=== PATIENT | male | born 1960 | race African-American/Black ===

== ENCOUNTER 2022-12-22 16:12 | Inpatient (IN) | payer OTHER ==
[2022-12-22 17:52] VITALS: BMI 33.8
[2022-12-22] MEDS ORDERED: LOPERAMIDE HCL 2 MG CAPSULE PO PRN (19:31)
[2022-12-22] MEDS ORDERED: BISMUTH SUBSALICYLATE 524 MG/30 ML PO PRN (19:31)
[2022-12-22] MEDS ORDERED: MAG HYDROX/AL HYDROX/SIMETH 30 ML UNIT-DOSE CUP PO PRN (19:31)
[2022-12-22] MEDS ORDERED: P-EPHED 60MG/TRIPROLIDI 2.5MG TABLET PO PRN (19:31)
[2022-12-22] MEDS ORDERED: IBUPROFEN 400 MG TABLET (FP) PO PRN (19:31)
[2022-12-22] MEDS ORDERED: BENZOCAINE/MENTHOL (CHLORASEPTIC ) LOZENGE MM PRN (19:31)
[2022-12-22] MEDS ORDERED: ACETAMINOPHEN 325 MG TABLET (FP) PO PRN (19:31)
[2022-12-22] MEDS ORDERED: ONDANSETRON *ODT* 4 MG TABLET SL PRN (19:31)
[2022-12-22] MEDS ORDERED: POLYETHYLENE GLYCOL (HEALTHYLAX) 3350 17 GM PACKET PO PRN (19:31)
[2022-12-22] MEDS ORDERED: IBUPROFEN 600 MG TABLET (FP) PO PRN (19:31)
[2022-12-22] MEDS ORDERED: MAGNESIUM HYDROX 2400MG/30ML ORAL SUSPENSION 30 ML CUP PO PRN (19:31)
[2022-12-22] MEDS ORDERED: BENZONATATE 200 MG CAPSULE PO PRN (19:31)
[2022-12-22] MEDS ORDERED: guaiFENesin 600 MG TABLET.ER (FP) PO PRN (19:31)
[2022-12-22] MEDS ORDERED: DICYCLOMINE HCL 10 MG CAPSULE PO PRN (19:31)
[2022-12-22] MEDS: METHOCARBAMOL 500 MG TABLET PO PRN (20:32)
[2022-12-22] MEDS ORDERED: MELATONIN 5 MG TABLETS PO SCH (22:00)
[2022-12-22] MEDS: THIAMINE HCL 100 MG TABLET (FP) PO SCH (22:29)
[2022-12-22] MEDS: hydrOXYzine PAMOATE 25 MG CAPSULE (FP) PO PRN (22:30)
[2022-12-23] MEDS ORDERED: chlordiazePOXIDE HCL 25 MG CAPSULE PO PRN (09:51)
[2022-12-23 10:08] LABS: HEMATOCRIT 41.4 % (35.4-49); HEMOGLOBIN 13.6 GM/dL (11.7-16.9); MCH 29.3 pg (25.7-33.7); MCHC 32.9 g/dl (32.0-35.9); MEAN CELL VOLUME 89.1 fl (80-96); MEAN PLT VOLUME 8.8 fl (7.5-11.1); PLATELET COUNT 285 10^3/uL (134-434); RBC 4.64 M/mm3 (4.00-5.60); RDW 14.4 % (11.9-15.9); WHITE BLOOD COUNT 9.2 K/mm3 (4.0-10.0)
[2022-12-23] MEDS: PRENATAL VITAMINS W/ FOLIC ACID TABLET (FP) PO SCH (10:15)
[2022-12-23] MEDS: chlordiazePOXIDE HCL 25 MG CAPSULE PO SCH ×3 (10:15→22:32)
[2022-12-23 10:22] LABS: ALBUMIN 3.1 g/dl (3.4-5.0)
[2022-12-23 10:25] LABS: BLOOD UREA NITROGEN 14.1 mg/dL (7-18); CALCIUM 8.4 mg/dL (8.5-10.1); TOT PROT 7.1 g/dl (6.4-8.2)
[2022-12-23 10:26] LABS: BILIRUBIN,TOTAL 0.6 mg/dL (0.2-1)
[2022-12-23 10:30] LABS: CREATININE 0.9 mg/dL (0.55-1.3)
[2022-12-23] MEDS: THIAMINE HCL 100 MG TABLET (FP) PO SCH (22:32)
[2022-12-23] MEDS: SUVOREXANT 10 MG TABLET PO PRN (22:33)
[2022-12-24] MEDS: chlordiazePOXIDE HCL 25 MG CAPSULE PO SCH ×4 (05:40→22:15)
[2022-12-24] MEDS: PRENATAL VITAMINS W/ FOLIC ACID TABLET (FP) PO SCH (10:13)
[2022-12-24] MEDS ORDERED: PENICILLIN G BENZATHINE 2,400,000 UNIT/4 ML PFS IM ONE (13:15)
[2022-12-24] MEDS: THIAMINE HCL 100 MG TABLET (FP) PO SCH (22:15)
[2022-12-24] MEDS: SUVOREXANT 10 MG TABLET PO PRN (22:16)
[2022-12-24] MEDS ORDERED: ALBUTEROL SO4 HFA INHALER IH PRN (23:05)
[2022-12-25] MEDS: chlordiazePOXIDE HCL 25 MG CAPSULE PO SCH ×4 (05:27→22:24)
[2022-12-25] MEDS: PRENATAL VITAMINS W/ FOLIC ACID TABLET (FP) PO SCH (10:18)
[2022-12-25] MEDS ORDERED: PNEUMOC 20-VAL CONJ-DIP CRM/PF 0.5 ML SYRINGE IM ONE (12:00)
[2022-12-25] MEDS: MOMETASONE FUROATE 220 MCG/IH INHALER IH SCH (14:48)
[2022-12-25] MEDS: THIAMINE HCL 100 MG TABLET (FP) PO SCH (22:23)
[2022-12-25] MEDS: TERAZOSIN HCL 1 MG CAPSULE PO SCH (22:23)
[2022-12-25] MEDS: SUVOREXANT 10 MG TABLET PO PRN (22:24)
[2022-12-26] MEDS ORDERED: chlordiazePOXIDE HCL 10 MG CAPSULE PO PRN
[2022-12-26] MEDS: chlordiazePOXIDE HCL 10 MG CAPSULE PO SCH ×4 (05:45→22:20)
[2022-12-26] MEDS: MOMETASONE FUROATE 220 MCG/IH INHALER IH SCH (10:27)
[2022-12-26] MEDS: PRENATAL VITAMINS W/ FOLIC ACID TABLET (FP) PO SCH (10:28)
[2022-12-26] MEDS: hydrOXYzine PAMOATE 25 MG CAPSULE (FP) PO PRN (22:19)
[2022-12-26] MEDS: METHOCARBAMOL 500 MG TABLET PO PRN (22:19)
[2022-12-26] MEDS: THIAMINE HCL 100 MG TABLET (FP) PO SCH (22:19)
[2022-12-26] MEDS: SUVOREXANT 10 MG TABLET PO PRN (22:19)
[2022-12-26] MEDS: TERAZOSIN HCL 1 MG CAPSULE PO SCH (22:23)
[2022-12-27] MEDS ORDERED: chlordiazePOXIDE HCL 10 MG CAPSULE PO SCH (05:00)
[2022-12-27 06:37] VITALS: BP 126/60; PULSE 68; RESP 17; TEMP 98.4
[2022-12-27] MEDS: MOMETASONE FUROATE 220 MCG/IH INHALER IH SCH (09:13)
[2022-12-27] MEDS: PRENATAL VITAMINS W/ FOLIC ACID TABLET (FP) PO SCH (09:14)
[2022-12-28] MEDS ORDERED: chlordiazePOXIDE HCL 10 MG CAPSULE PO ONE (05:00)
== END 2022-12-27 08:57 | disposition home or self-care (01) | DRG 774 ==
LOC: YASAS 16:12 → Y3N 19:48
PROVIDERS: ADMIT Allergy & Immunology; ATTEND Surgery
PROC: HZ2ZZZZ Detoxification Services for Substance Abuse Treatment (ICD-10-PCS; principal; 2022-12-22)
DX: F10.230 Alcohol dependence with withdrawal, uncomplicated (principal); F14.20 Cocaine dependence, uncomplicated; F19.282 Other psychoactive substance dependence with psychoactive substance-induced sleep disorder; I10 Essential (primary) hypertension
CPT/HCPCS: 36415; 80053; 83036; 85027; 86593; 86780; 87635; 87811; 90677

== ENCOUNTER 2024-03-06 09:12 | Inpatient (IN) | payer OTHER ==
[2024-03-06 10:15] VITALS: BMI 27.3
[2024-03-06] MEDS ORDERED: guaiFENesin 600 MG TABLET.ER (FP) PO PRN (10:55)
[2024-03-06] MEDS ORDERED: IBUPROFEN 600 MG TABLET (FP) PO PRN (10:55)
[2024-03-06] MEDS ORDERED: NALOXONE (NARCAN) HCL 4 MG/0.1 ML SPRAY NS PRN (10:55)
[2024-03-06] MEDS ORDERED: IBUPROFEN 400 MG TABLET (FP) PO PRN (10:55)
[2024-03-06] MEDS ORDERED: MAGNESIUM HYDROX 2400MG/30ML ORAL SUSPENSION 30 ML CUP PO PRN (10:55)
[2024-03-06] MEDS ORDERED: BENZONATATE 200 MG CAPSULE PO PRN (10:55)
[2024-03-06] MEDS ORDERED: LOPERAMIDE HCL 2 MG CAPSULE PO PRN (10:55)
[2024-03-06] MEDS ORDERED: MAG HYDROX/AL HYDROX/SIMETH 30 ML UNIT-DOSE CUP PO PRN (10:55)
[2024-03-06] MEDS ORDERED: ONDANSETRON *ODT* 4 MG TABLET SL PRN (10:55)
[2024-03-06] MEDS ORDERED: DICYCLOMINE HCL 10 MG CAPSULE PO PRN (10:55)
[2024-03-06] MEDS ORDERED: BENZOCAINE/MENTHOL (CHLORASEPTIC ) LOZENGE MM PRN (10:55)
[2024-03-06] MEDS ORDERED: ACETAMINOPHEN 325 MG TABLET (FP) PO PRN (10:55)
[2024-03-06] MEDS ORDERED: BISMUTH SUBSALICYLATE 262 MG/15 ML BTL PO PRN (10:55)
[2024-03-06] MEDS ORDERED: POLYETHYLENE GLYCOL (HEALTHYLAX) 3350 17 GM PACKET PO PRN (10:55)
[2024-03-06] MEDS ORDERED: METHOCARBAMOL 500 MG TABLET PO PRN (10:55)
[2024-03-06] MEDS ORDERED: ALBUTEROL SO4 HFA INHALER IH PRN (11:01)
[2024-03-06] MEDS ORDERED: amLODIPine BESYLATE 5 MG TABLET (FP) ONE (12:31)
[2024-03-06] MEDS: amLODIPine BESYLATE 10 MG TABLET (FP) PO SCH (12:32)
[2024-03-06] MEDS: chlordiazePOXIDE HCL 25 MG CAPSULE PO PRN (18:34)
[2024-03-06] MEDS: MELATONIN 5 MG TABLETS PO SCH (22:01)
[2024-03-06] MEDS: chlordiazePOXIDE HCL 25 MG CAPSULE PO SCH (22:01)
[2024-03-06] MEDS: SUVOREXANT 5 MG TABLET PO PRN (22:02)
[2024-03-06] MEDS: THIAMINE 100 MG TABLET PO SCH (22:02)
[2024-03-07] MEDS: PRENATAL VITAMINS W/ FOLIC ACID TABLET (FP) PO SCH (10:12)
[2024-03-07 13:43] LABS: HEMATOCRIT 40.5 % (35.4-49); HEMOGLOBIN 13.7 GM/dL (11.7-16.9); MCH 30.3 pg (25.7-33.7); MCHC 33.9 g/dl (32.0-35.9); MEAN CELL VOLUME 89.4 fl (80-96); MEAN PLT VOLUME 8.9 fl (7.5-11.1); PLATELET COUNT 226 10^3/uL (134-434); RBC 4.52 M/mm3 (4.00-5.60); RDW 14.5 % (11.9-15.9); WHITE BLOOD COUNT 5.8 K/mm3 (4.0-10.0)
[2024-03-07 13:47] LABS: POTASSIUM 3.8 mmol/L (3.5-5.1)
[2024-03-07 13:55] LABS: CALCIUM 8.9 mg/dL (8.5-10.1)
[2024-03-07 13:56] LABS: ALBUMIN 3.1 g/dl (3.4-5.0); BLOOD UREA NITROGEN 10.7 mg/dL (7-18)
[2024-03-07 13:59] LABS: CREATININE 0.9 mg/dL (0.55-1.3)
[2024-03-07 14:00] LABS: BILIRUBIN,TOTAL 0.2 mg/dL (0.2-1); TOT PROT 6.6 g/dl (6.4-8.2)
[2024-03-07] MEDS: hydrOXYzine PAMOATE 25 MG CAPSULE (FP) PO PRN (22:33)
[2024-03-08] MEDS: chlordiazePOXIDE HCL 25 MG CAPSULE PO SCH (06:00)
[2024-03-08 21:13] VITALS: RESP 17
[2024-03-09] MEDS ORDERED: chlordiazePOXIDE HCL 10 MG CAPSULE PO PRN
[2024-03-09] MEDS: chlordiazePOXIDE HCL 10 MG CAPSULE PO SCH (06:00)
[2024-03-09 10:20] VITALS: BP 133/64; PULSE 89; TEMP 98.5
[2024-03-09] MEDS: NALOXONE (NYS OPIOID OVERDOSE PROGRAM) 4 MG/0.1 ML SPRAY NS SCH (10:30)
[2024-03-10] MEDS ORDERED: chlordiazePOXIDE HCL 10 MG CAPSULE PO SCH (05:00)
[2024-03-11] MEDS ORDERED: chlordiazePOXIDE HCL 10 MG CAPSULE PO ONE (05:00)
== END 2024-03-09 11:43 | disposition home or self-care (01) | DRG 897 ==
LOC: YASAS 09:12 → Y6N 12:34
PROVIDERS: ADMIT Allergy & Immunology; ATTEND Surgery
PROC: HZ2ZZZZ Detoxification Services for Substance Abuse Treatment (ICD-10-PCS; principal; 2024-03-06)
DX: F10.230 Alcohol dependence with withdrawal, uncomplicated (principal); F14.20 Cocaine dependence, uncomplicated; F43.10 Post-traumatic stress disorder, unspecified; G47.00 Insomnia, unspecified; I10 Essential (primary) hypertension; J45.909 Unspecified asthma, uncomplicated; Z87.891 Personal history of nicotine dependence; Z91.85 Personal history of military service; Z91.82 Personal history of military deployment
CPT/HCPCS: 36415; 80053; 80307; 85027; 86593; 86780; 93005; 93010